=== PATIENT | female | born 1995 | race American Indian/Alaskan Native ===

== ENCOUNTER 2017-02-03 02:59 | Emergency (ER) | payer MEDICAID ==
[2017-02-03 02:59] VITALS: BMI 27.6
[2017-02-03 03:18] VITALS: RESP 14
[2017-02-03 03:56] LABS: RBC URINE 1 /hpf (0-3); URINE BILIRUBIN NEGATIVE (NEGATIVE); URINE BLOOD NEGATIVE (NEGATIVE); URINE COLOR Yellow (YELLOW); URINE GLUCOSE (UA) NORMAL (Normal); URINE KETONE NEGATIVE (NEGATIVE); URINE LEUKOCYTE ESTERASE TRACE Leu/uL (Negative); URINE PROTEIN 1+ mg/dL (NEGATIVE); WBC URINE 7 /hpf (0-5)
--- NOTE | 2017-02-03 04:27 | C.PDOC ---
History Of Present Illness A 21 year old female presents to the emergency room with complaints of pelvic pain that started today. Patient notes brown-like discharge and an odor for the past 2 weeks. Patient is sexually active with no new partners. Patient uses protection. Patient reports having intercourse tonight, which was painful. Patient denies any fever, chills, nausea, vomiting, dysuria, frequency, hematuria, incontinence, vaginal bleeding, back pain, or any other complaints. Time Seen by Provider: 02/03/17 03:23 Chief Complaint (Nursing): Abdominal Pain History Per: Patient History/Exam Limitations: no limitations Onset/Duration Of Symptoms: Other (2 weeks) Current Symptoms Are (Timing): Still Present Severity: Moderate Pain Scale Rating Of: 4 Radiation Of Pain To:: None Associated Symptoms: denies: Fever, Chills, Nausea, Vomiting, Diarrhea, Back Pain, Urinary Symptoms Exacerbating Factors: None Alleviating Factors: None Recent travel outside of the [place]: No Past Medical History Reviewed: Historical Data, Nursing Documentation, Vital Signs Vital Signs: Last Vital Signs Temp 98.2 F 02/03/17 04:40 Pulse 75 02/03/17 04:40 Resp 14 02/03/17 04:40 BP 110/70 02/03/17 04:40 Pulse Ox 97 02/03/17 04:57 - Medical History PMH: Asthma - [facility] Procedures CLOSURE SKIN & SUBCUTANEOUS NEC (11/07/13) MANUAL ASSIST DELIV NEC (09/13/14) Family History: States: No Known Family Hx - Social History Hx Tobacco Use: No Hx Alcohol Use: No Hx Substance Use: No - Immunization History Hx Tetanus Toxoid Vaccination: Yes Hx Influenza Vaccination: No Hx Pneumococcal Vaccination: No Review Of Systems Except As Marked, All Systems Reviewed And Found Negative. Constitutional: Negative for: Fever, Chills Gastrointestinal: Negative for: Nausea, Vomiting, Diarrhea Genitourinary: Positive for: Vaginal Discharge, Pelvic Pain. Negative for: Dysuria, Frequency, Incontinence, Hematuria, Vaginal Bleeding Physical Exam - Physical Exam Appears: Well, Non-toxic Skin: Normal Color, Warm, Dry, No Rash Head: Atraumatic, Normacephalic Eye(s): bilateral: Normal Inspection, EOMI Oral Mucosa: Moist Chest: Symmetrical Cardiovascular: Rhythm Regular Respiratory: Normal Breath Sounds, No Rales, No Rhonchi, No Wheezing Gastrointestinal/Abdominal: Soft, No Tenderness, No Guarding, No Rebound Pelvic: Normal External Exam, No Vaginal Bleeding, No Vaginal Discharge, No Cervical Motion Tenderness, Other ((+) foreign body -tampon in vaginal canal. ) Extremity: Normal ROM, No Tenderness Neurological/Psych: Oriented x3, Normal Speech, Normal Cognition ED Course And Treatment O2 Sat by Pulse Oximetry: 97 Progress Note: Patient notes that she last used a tampon 2+ weeks ago. Discussed signs of concern. There are no signs of systemic infection. Patient instructed to follow up with CONTROL ROOM AGENT in 1-2 days. Case discussed with Dr. Knight who agrees with plan and discharge. Disposition - Disposition Disposition: HOME/ ROUTINE Disposition Time: 04:25 Condition: STABLE Additional Instructions: Follow up with your primary medical doctor or clinic in 2-5 days for further evaluation. Take medications as prescribed. Return to the emergency department at any time if symptoms persist or worsen. Prescriptions: Clindamycin [Cleocin] 300 mg PO Q6 #28 cap Instructions: Vaginitis (ED) Forms: Work Excuse - Clinical Impression Clinical Impression: Foreign body in vagina - Scribe Statement The provider has reviewed the documentation as recorded by the Ahsan Serna Provider Scribe Attestation: All medical record entries made by the Ahsan were at my direction and personally dictated by me. I have reviewed the chart and agree that the record accurately reflects my personal performance of the history, physical exam, medical decision making, and the department course for this patient. I have also personally directed, reviewed, and agree with the discharge instructions and disposition.
[2017-02-03 04:43] VITALS: BP 110/70; PULSE 75; TEMP 98.2
[2017-02-03 04:52] VITALS: O2SAT 97
== END 2017-02-03 04:40 | disposition home or self-care (01) ==
LOC: C.ER 02:59
DX: T19.2XXA Foreign body in vulva and vagina, initial encounter (principal); X58.XXXA Exposure to other specified factors, initial encounter

== ENCOUNTER 2017-07-05 18:52 | Emergency (ER) | payer SELFPAY ==
[2017-07-05 18:52] VITALS: BMI 27.6
[2017-07-05 19:05] VITALS: BP 101/63; PULSE 93; RESP 16; TEMP 98; O2SAT 99
[2017-07-05] MEDS ORDERED: Lidocaine 1% Inj (20ml) ONE (20:15)
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
== END 2017-07-05 20:59 | disposition home or self-care (01) ==
LOC: C.ER 18:52
DX: S01.511A Laceration without foreign body of lip, initial encounter (principal); S01.512A Laceration without foreign body of oral cavity, initial encounter; Y08.89XA Assault by other specified means, initial encounter; Y93.89 Activity, other specified; Y92.9 Unspecified place or not applicable

== ENCOUNTER 2017-09-09 17:55 | Emergency (ER) | payer MEDICAID ==
[2017-09-09 17:56] VITALS: BMI 27.6
[2017-09-09 18:12] VITALS: BP 102/65; PULSE 84; RESP 18; TEMP 98.9; O2SAT 99
--- NOTE | 2017-09-09 18:34 | C.PDOC ---
History Of Present Illness 22 yr old female presents to the ER requesting test, states she had intermittent nausea for the past few days. Denies fever, chills, abdominal pain or dysuria. Time Seen by Provider: 09/09/17 18:14 Chief Complaint (Nursing): Medical Clearance History Per: Patient History/Exam Limitations: no limitations Onset/Duration Of Symptoms: Days Past Medical History Reviewed: Historical Data, Nursing Documentation, Vital Signs Vital Signs: Last Vital Signs Temp 98.9 F 09/09/17 18:08 Pulse 84 09/09/17 18:08 Resp 18 09/09/17 18:08 BP 102/65 09/09/17 18:08 Pulse Ox 99 09/09/17 18:56 - Medical History PMH: Asthma - [facility] Procedures CLOSURE SKIN & SUBCUTANEOUS NEC (11/07/13) MANUAL ASSIST DELIV NEC (09/13/14) Family History: States: No Known Family Hx - Social History Hx Tobacco Use: No Hx Alcohol Use: No Hx Substance Use: Yes (marijua) - Immunization History Hx Tetanus Toxoid Vaccination: Yes Hx Influenza Vaccination: No Hx Pneumococcal Vaccination: No Review Of Systems Except As Marked, All Systems Reviewed And Found Negative. Constitutional: Negative for: Fever, Chills Gastrointestinal: Positive for: Nausea. Negative for: Abdominal Pain Genitourinary: Negative for: Dysuria Physical Exam - Physical Exam Appears: Non-toxic, No Acute Distress Skin: Warm, Dry, No Rash Head: Atraumatic, Normacephalic Eye(s): bilateral: Normal Inspection, PERRL, EOMI Oral Mucosa: Moist Throat: No Erythema, No Exudate Neck: Normal ROM, Supple Chest: Symmetrical, No Tenderness Cardiovascular: Rhythm Regular, No Friction Rub, No Murmur Respiratory: Normal Breath Sounds, No Rales, No Rhonchi, No Stridor, No Wheezing Gastrointestinal/Abdominal: Normal Exam, Soft, No Tenderness, No Guarding, No Rebound Back: Normal Inspection, No CVA Tenderness Extremity: Normal ROM, No Swelling Neurological/Psych: Oriented x3, Normal Speech, Normal Motor Gait: Steady ED Course And Treatment O2 Sat by Pulse Oximetry: 99 (RA) Pulse Ox Interpretation: Normal Disposition - Disposition Referrals: [facility] [Outside] [facility] [employer] [facility] [Outside] [facility] [Outside] Disposition: HOME/ ROUTINE Disposition Time: 18:34 Condition: GOOD Additional Instructions: Follow up with the medical doctor within 1-2 days, Return if worsened. Instructions: (ED) Forms: [employer] (East Timorese) - Clinical Impression Clinical Impression: - PA / MANAGER ENGAGEMENT / Resident Statement MD/DO has reviewed & agrees with the documentation as recorded. - Scribe Statement The provider has reviewed the documentation as recorded by the Scribe Yohana Mcneil All medical record entries made by the Facundoibe were at my direction and personally dictated by me. I have reviewed the chart and agree that the record accurately reflects my personal performance of the history, physical exam, medical decision making, and the department course for this patient. I have also personally directed, reviewed, and agree with the discharge instructions and disposition.
== END 2017-09-09 18:35 | disposition home or self-care (01) ==
LOC: C.ER 17:55
DX: O26.90 Pregnancy related conditions, unspecified, unspecified trimester (principal); Z3A.00 Weeks of gestation of pregnancy not specified

== ENCOUNTER 2017-09-16 22:05 | Emergency (ER) | payer SELFPAY ==
[2017-09-16 22:14] VITALS: BMI 23.3
[2017-09-16] MEDS ORDERED: Sodium Chloride 0.9% 1,000 ML IV ONE (22:16)
[2017-09-16 22:34] LABS: RBC URINE 3066 /hpf (0-3); URINE BILIRUBIN NEGATIVE (NEGATIVE); URINE BLOOD 3+ (NEGATIVE); URINE COLOR Yellow (YELLOW); URINE GLUCOSE (UA) NORMAL (Normal); URINE KETONE NEGATIVE (NEGATIVE); URINE LEUKOCYTE ESTERASE 2+ Leu/uL (Negative); URINE PROTEIN 2+ mg/dL (NEGATIVE); WBC URINE 33 /hpf (0-5)
[2017-09-16] MEDS ORDERED: Sodium Chloride 0.9% 1,000 ML ONE (23:13)
[2017-09-16 23:15] LABS: BASO % 0.5 % (0.0-2.0); EOS # 0.1 K/uL (0.0-0.7); EOS % 0.8 % (0.0-4.0); HEMATOCRIT 36.5 % (34.0-47.0); LYMPH # 1.8 K/uL (1.0-4.3); LYMPH % 26.6 % (20.0-40.0); MEAN CELL VOLUME 82.3 fL (81.0-99.0); MEAN CORPUSCULAR HEMOGLOBIN 27.4 pg (27.0-31.0); MEAN CORPUSCULAR HGB CONC 33.3 g/dL (33.0-37.0); MEAN PLATELET VOLUME 7.1 fL (7.2-11.7); MONO # 0.5 K/uL (0.0-0.8); MONO % 7.7 % (0.0-10.0); WHITE BLOOD COUNT 6.7 K/uL (4.8-10.8)
--- NOTE | 2017-09-16 23:20 | US ---
EXAM: US , Transvaginal CLINICAL HISTORY: 22 years old, female; Signs and symptoms; Lmp or gestational age (in weeks): 08/07/17; Antepartum complications; Bleeding; ; Additional info: Vag bleed @ 5 wks, ? ectopic TECHNIQUE: Real-time transvaginal obstetrical ultrasound of the maternal pelvis and a first trimester with image documentation. Transvaginal imaging was used for better evaluation of the fetus and adnexa. COMPARISON: No relevant prior studies available. FINDINGS: Gestation: Intrauterine gestational sac noted. Evidence of yolk sac and pole. Estimated gestational age based on mean sac diameter is 5 weeks 2 days. heart rate measured at 110 BPM. 3.7 x 1.7 x 2.9 cm hypoechoic/heterogeneous focus noted adjacent to gestational sac, likely subchorionic hematoma. Uterus/cervix: Retroverted uterus. Ovaries: Bilateral flow. Evidence of 2.5 cm right corpus luteum. Free fluid: No free fluid. IMPRESSION: Single live IUP as above. Evidence of large subchorionic hematoma. Additional details/findings as above. Followup imaging recommended.
[2017-09-16 23:27] LABS: ALKALINE PHOSPHATASE 47 U/L (38-126); ALT/SGPT 40 U/L (9-52); AST/SGOT 16 U/L (14-36); BILIRUBIN,TOTAL 0.6 mg/dL (0.2-1.3); BLOOD UREA NITROGEN 9 mg/dL (7-17); CALCIUM 8.5 mg/dl (8.6-10.4); CARBON DIOXIDE 27 mmol/L (22-30); CHLORIDE 104 mmol/L (98-107); GFR AFRICAN-AMERICAN > 60; GLUCOSE,RANDOM 76 mg/dL (65-105); POTASSIUM 3.7 mmol/L (3.6-5.2); SODIUM 136 mmol/L (132-148)
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
[2017-09-17 00:38] VITALS: BP 102/69; PULSE 63; RESP 18; TEMP 98
[2017-09-17 00:42] VITALS: O2SAT 100
== END 2017-09-17 00:49 | disposition home or self-care (01) ==
LOC: C.ER 22:05
DX: O20.0 Threatened abortion (principal); Z3A.01 Less than 8 weeks gestation of pregnancy
CPT/HCPCS: 76817; 80053; 81001; 84702; 84703; 85025; 86850; 86900; 96360; 99285; J7040

== ENCOUNTER 2018-04-27 12:27 | Emergency (ER) | payer MEDICAID ==
[2018-04-27 12:28] VITALS: BMI 23.3
[2018-04-27 12:34] VITALS: BP 111/74; PULSE 75; RESP 18; TEMP 98.3; O2SAT 100
--- NOTE | 2018-04-27 13:06 | C.PDOC ---
History Of Present Illness 23-year-old female, presents to the emergency department with complaints of lower back cramping, that is associated with episodes of non-bloody/watery diarrhea. Patient is also complaining of pimple-like lesions to the left labia for the past week. She denies any nausea/vomiting, or any other associated symptoms. LMP 03/08 Time Seen by Provider: 04/27/18 12:37 Chief Complaint (Nursing): Abdominal Pain History Per: Patient History/Exam Limitations: no limitations Past Medical History Reviewed: Historical Data, Nursing Documentation, Vital Signs Vital Signs: Last Vital Signs Temp 98.3 F 04/27/18 12:30 Pulse 75 04/27/18 12:30 Resp 18 04/27/18 12:30 BP 111/74 04/27/18 12:30 Pulse Ox 100 04/27/18 13:22 - Medical History PMH: Asthma - [facility] Procedures CLOSURE SKIN & SUBCUTANEOUS NEC (11/07/13) MANUAL ASSIST DELIV NEC (09/13/14) Family History: States: No Known Family Hx - Social History Hx Tobacco Use: No Hx Alcohol Use: No Hx Substance Use: Yes ([facility]) - Immunization History Hx Tetanus Toxoid Vaccination: Yes Hx Influenza Vaccination: No Hx Pneumococcal Vaccination: No Review Of Systems Constitutional: Negative for: Fever Cardiovascular: Negative for: Chest Pain, Palpitations Respiratory: Negative for: Shortness of Breath Gastrointestinal: Negative for: Vomiting Genitourinary: Positive for: Other (lesions on labia). Negative for: Vaginal Discharge, Vaginal Bleeding Skin: Negative for: Rash Neurological: Negative for: Weakness, Numbness, Headache, Dizziness Physical Exam - Physical Exam Appears: Non-toxic, No Acute Distress Skin: Normal Color, Warm, Dry, No Rash Head: Atraumatic, Normacephalic Eye(s): bilateral: Normal Inspection, PERRL, EOMI Nose: Normal Oral Mucosa: Moist Lips: Normal Appearing Neck: Normal ROM Chest: Symmetrical Cardiovascular: Rhythm Regular, No Murmur Respiratory: Normal Breath Sounds, No Accessory Muscle Use Gastrointestinal/Abdominal: Soft, No Tenderness, No Guarding, No Rebound Pelvic: Other (Left labia: 3 lesions, 1-2mm nodular with superficial scabbing. Clear fluid discharge, scant. No erythema, non-fluctuant) Extremity: Normal ROM, No Deformity, No Swelling Neurological/Psych: Oriented x3, Normal Speech ED Course And Treatment O2 Sat by Pulse Oximetry: 100 (RA) Pulse Ox Interpretation: Normal Disposition Counseled Patient/Family Regarding: Studies Performed, Diagnosis, Need For Followup, Rx Given - Disposition Referrals: [facility] [Outside] [facility] [Outside] Disposition: HOME/ ROUTINE Disposition Time: 13:00 Condition: IMPROVED Prescriptions: Atropine/Diphenoxylate [Lonox 0.025 MG-2.5 MG] 1 tab PO BID PRN #6 tab PRN Reason: Diarrhea Ibuprofen [Motrin] 600 mg PO Q6 #30 tab Nitrofurantoin Macrocrystals [Macrobid] 100 mg PO BID #10 cap Phenazopyridine HCl [Pyridium] 200 mg PO BID #6 tablet Instructions: Diarrhea and Traveler's Diarrhea, Adult (DC), Urinary Tract Infection, Adult (DC) Forms: [employer] (Japanese) - Clinical Impression Clinical Impression: Genital lesion, female, Pelvic pain, Diarrhea, UTI (urinary tract infection) - Scribe Statement The provider has reviewed the documentation as recorded by the Scribe (Sarahi Cody) All medical record entries made by the Scribe were at my direction and personally dictated by me. I have reviewed the chart and agree that the record accurately reflects my personal performance of the history, physical exam, medical decision making, and the department course for this patient. I have also personally directed, reviewed, and agree with the discharge instructions and disposition. Provider Attestation: All medical record entries made by the Scribe were at my direction and personally dictated by me. I have reviewed the chart and agree that the record accurately reflects my personal performance of the history, physical exam, medical decision making, and the department course for this patient. I have also personally directed, reviewed, and agree with the discharge instructions and disposition.
[2018-04-27 13:07] LABS: SQUAMOUS EPITHIAL 12 /hpf (0-5); URINE BILIRUBIN NEGATIVE (NEGATIVE); URINE BLOOD NEGATIVE (NEGATIVE); URINE CLARITY Hazy (Clear); URINE COLOR Yellow (YELLOW); URINE GLUCOSE (UA) NORMAL (Normal); URINE LEUKOCYTE ESTERASE 2+ Leu/uL (Negative); URINE PROTEIN 1+ mg/dL (NEGATIVE); URINE UROBILINOGEN NORMAL mg/dL (0.2-1.0)
[2018-04-27] MEDS ORDERED: cefTRIAXone (Rocephin) 250 mg Inj IM STA (13:08)
== END 2018-04-27 13:37 | disposition home or self-care (01) ==
LOC: C.ER 12:27
DX: N39.0 Urinary tract infection, site not specified (principal); N89.9 Noninflammatory disorder of vagina, unspecified; R10.2 Pelvic and perineal pain; R19.7 Diarrhea, unspecified
CPT/HCPCS: 81001; 87491; 87591; 96372; 99284; J0696

== ENCOUNTER 2018-09-14 23:15 | Emergency (ER) | payer MEDICAID ==
[2018-09-14 23:15] VITALS: BMI 23.3
[2018-09-14 23:22] VITALS: O2SAT 98
[2018-09-15 00:15] VITALS: BP 120/70; PULSE 100; RESP 18; TEMP 99
--- NOTE | 2018-09-15 00:44 | C.PDOC ---
History Of Present Illness 23 year old female presents to the ER with a complaint of frontal headache since yesterday associated with subjective fever. Patient reports positive sick contacts at work. Denies ear pain, throat pain, or cough. Time Seen by Provider: 09/14/18 23:27 Chief Complaint (Nursing): Headache History Per: Patient History/Exam Limitations: no limitations Onset/Duration Of Symptoms: Days (Yesterday) Current Symptoms Are (Timing): Still Present Preceeding Symptoms: None Associated Symptoms: Other (Subjective fever) Recent travel outside of the [place]: No Past Medical History Reviewed: Historical Data, Nursing Documentation, Vital Signs Vital Signs: Last Vital Signs Temp 99 F 09/15/18 00:15 Pulse 100 H 09/15/18 00:15 Resp 18 09/15/18 00:15 BP 120/70 09/15/18 00:15 Pulse Ox 98 09/15/18 00:15 - Medical History PMH: Asthma, Bronchitis - [facility] Procedures CLOSURE SKIN & SUBCUTANEOUS NEC (11/07/13) MANUAL ASSIST DELIV NEC (09/13/14) Family History: States: Unknown Family Hx - Social History Hx Tobacco Use: No Hx Alcohol Use: No Hx Substance Use: No - Immunization History Hx Tetanus Toxoid Vaccination: Yes Hx Influenza Vaccination: No Hx Pneumococcal Vaccination: No Review Of Systems Constitutional: Positive for: Fever (Subjective) ENT: Negative for: Ear Pain, Throat Pain Respiratory: Negative for: Cough Gastrointestinal: Negative for: Nausea, Vomiting Neurological: Positive for: Headache Physical Exam - Physical Exam Appears: Non-toxic Skin: Normal Color, Warm, Dry Head: Atraumatic, Normacephalic Eye(s): bilateral: Normal Inspection, PERRL, EOMI Ear(s): Bilateral: Normal Nose: Normal Oral Mucosa: Moist Neck: Normal, No Midline Cervical Tenderness, No Paracervical Tenderness, Supple Chest: Symmetrical, No Tenderness Cardiovascular: Rhythm Regular Respiratory: Normal Breath Sounds, No Rales, No Rhonchi, No Wheezing Neurological/Psych: Oriented x3, Normal Speech ED Course And Treatment O2 Sat by Pulse Oximetry: 98 (Room air) Pulse Ox Interpretation: Normal Medical Decision Making Medical Decision Making: Motrin administered. Flu swab ordered, results were negative. Patient denies severe headache has no nuchal rigidity, neuro deficits and in no acute distress, Vitals are stable, will discharge home with instructions to follow up with PMD. Disposition Counseled Patient/Family Regarding: Diagnosis, Need For Followup - Disposition Disposition: HOME/ ROUTINE Disposition Time: 00:05 Condition: GOOD Additional Instructions: Take Tylenol or Motrin alternating every 4-6 hours for Fever 100.4F or higher. Rest and drink plenty of fluids. May use cool mist humidifier or vaporizer in room. Follow up with your primary medical doctor or clinic in 2-5 days for further evaluation. Instructions: Headache, Adult (DC) Forms: [facility] (Hebrew), Work Excuse - POA Present On Arrival: None - Clinical Impression Clinical Impression: Viral syndrome - PA / GEOGRAPHY DEPARTMENT CHAIR / Resident Statement MD/DO has reviewed & agrees with the documentation as recorded. - Scribe Statement The provider has reviewed the documentation as recorded by the Scribe Uziel Major All medical record entries made by the Scribnaeem were at my direction and personally dictated by me. I have reviewed the chart and agree that the record accurately reflects my personal performance of the history, physical exam, medical decision making, and the department course for this patient. I have also personally directed, reviewed, and agree with the discharge instructions and disposition.
== END 2018-09-15 00:15 | disposition home or self-care (01) ==
LOC: C.ER 23:15
DX: B34.9 Viral infection, unspecified (principal)

== ENCOUNTER 2018-09-17 16:58 | Emergency (ER) | payer MEDICAID ==
[2018-09-17 16:58] VITALS: BMI 23.3
[2018-09-17 19:12] VITALS: BP 99/65; PULSE 86; RESP 18; TEMP 99.6; O2SAT 99
--- NOTE | 2018-09-17 19:43 | C.PDOC ---
History Of Present Illness 23 year old female presents to the ED for evaluation of fever and sore throat which began two days ago. Patient was seen in this ED two days ago. Patient denies cough, nausea, vomiting, abdominal pain, sick contacts or recent travel. Time Seen by Provider: 09/17/18 18:09 Chief Complaint (Nursing): Fever History Per: Patient History/Exam Limitations: no limitations Onset/Duration Of Symptoms: Days Current Symptoms Are (Timing): Still Present Associated Symptoms: Fever, Sore Throat. denies: Cough, Nausea, Vomiting Additional History Per: Patient Past Medical History Reviewed: Historical Data, Nursing Documentation, Vital Signs Vital Signs: Last Vital Signs Temp 99.6 F 09/17/18 19:11 Pulse 86 09/17/18 19:11 Resp 18 09/17/18 19:11 BP 99/65 L 09/17/18 19:11 Pulse Ox 99 09/17/18 19:11 - Medical History PMH: Asthma, Bronchitis Surgical History: No Surg Hx - [facility] Procedures CLOSURE SKIN & SUBCUTANEOUS NEC (11/07/13) MANUAL ASSIST DELIV NEC (09/13/14) Family History: States: Unknown Family Hx - Social History Hx Tobacco Use: No Hx Alcohol Use: No Hx Substance Use: No - Immunization History Hx Tetanus Toxoid Vaccination: Yes Hx Influenza Vaccination: No Hx Pneumococcal Vaccination: No Review Of Systems Constitutional: Positive for: Fever ENT: Positive for: Throat Pain Cardiovascular: Negative for: Chest Pain Gastrointestinal: Negative for: Nausea, Vomiting, Abdominal Pain Musculoskeletal: Positive for: Other (generalized body aches ) Physical Exam - Physical Exam Appears: Non-toxic, No Acute Distress Skin: Normal Color, Warm, Dry Head: Atraumatic, Normacephalic Eye(s): bilateral: Normal Inspection Ear(s): Bilateral: Normal Oral Mucosa: Moist Throat: Erythema (tonsillar ), Exudate (scant ), Other (tonsillar hypertrophy) Neck: Supple Lymphatic: Adenopathy (palpable, anterior, cervical ) Chest: Symmetrical, No Deformity, No Tenderness Cardiovascular: Rhythm Regular, No Murmur Respiratory: Normal Breath Sounds, No Rales, No Rhonchi, No Wheezing Gastrointestinal/Abdominal: Normal Exam, Bowel Sounds, Soft Extremity: Normal ROM, Capillary Refill (less than 2 seconds ) Neurological/Psych: Oriented x3, Normal Speech, Normal Cognition ED Course And Treatment O2 Sat by Pulse Oximetry: 99 (on RA) Pulse Ox Interpretation: Normal Medical Decision Making Medical Decision Making: Impression: 23 year old female with fever, sore throat Plan: * Tylenol PO * Zithromax PO * reassess and disposition Progress: Tylenol PO and Zithromax PO given. Patient with repeat temperature of 99.6. On reassessment, patient is resting comfortably, showing no signs of distress and is stable for discharge. Patient is advised to f/u with PMD within 1-2 days for further evaluation. Disposition Counseled Patient/Family Regarding: Studies Performed, Diagnosis, Need For Followup, Rx Given - Disposition Referrals: Obed Skelton MD [Staff Provider] - Disposition: HOME/ ROUTINE Disposition Time: 19:53 Condition: STABLE Additional Instructions: follow up with your doctor within 2 days call to make an appointment take medications as prescribed return to ER if symptoms worsens or progress Prescriptions: Azithromycin [Zithromax] 250 mg PO DAILY #4 tab RX: Ibuprofen [Motrin Tab] 400 mg PO QID PRN #15 tab PRN Reason: Pain, Moderate (4-7) Instructions: Sore Throat, Adult (DC) Forms: General Discharge Instructions, [facility] (Ukrainian), Work Excuse - Clinical Impression Clinical Impression: Pharyngitis - Scribe Statement The provider has reviewed the documentation as recorded by the Scribe (Geetha Edmondson) Provider Attestation: All medical record entries made by the Scribe were at my direction and personally dictated by me. I have reviewed the chart and agree that the record accurately reflects my personal performance of the history, physical exam, medical decision making, and the department course for this patient. I have also personally directed, reviewed, and agree with the discharge instructions and disposition.
== END 2018-09-17 20:20 | disposition home or self-care (01) ==
LOC: C.ER 16:58
DX: J02.9 Acute pharyngitis, unspecified (principal)

== ENCOUNTER 2018-12-30 02:26 | Emergency (ER) | payer MEDICAID ==
[2018-12-30 02:27] VITALS: BMI 23.3
[2018-12-30 02:51] VITALS: PULSE 133; RESP 20; TEMP 98.6; O2SAT 100
--- NOTE | 2018-12-30 03:29 | C.PDOC ---
History Of Present Illness 23 year old female presents with itchy rash to her medial thighs, upper arms, and back. Patient denies eating anything out of the ordinary. 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 Time Seen by Provider: 12/30/18 02:51 Chief Complaint (Nursing): Abnormal Skin Integrity History Per: Patient History/Exam Limitations: no limitations Onset/Duration Of Symptoms: Hrs Current Symptoms Are (Timing): Still Present Location Of Injury: Right: Arm, Thigh, Left: Arm, Thigh, Posterior: Back Quality Of Symptoms: Itching Recent travel outside of the [place]: No Past Medical History Reviewed: Historical Data, Nursing Documentation, Vital Signs Vital Signs: Last Vital Signs Temp 98.6 F 12/30/18 02:44 Pulse 133 H 12/30/18 02:44 Resp 20 12/30/18 02:44 BP Pulse Ox 100 12/30/18 02:44 - Medical History PMH: Asthma, Bronchitis - [facility] Procedures CLOSURE SKIN & SUBCUTANEOUS NEC (11/07/13) MANUAL ASSIST DELIV NEC (09/13/14) Family History: States: Unknown Family Hx - Social History Hx Tobacco Use: No Hx Alcohol Use: No Hx Substance Use: No - Immunization History Hx Tetanus Toxoid Vaccination: Yes Hx Influenza Vaccination: No Hx Pneumococcal Vaccination: No Review Of Systems Constitutional: Negative for: Fever, Chills Cardiovascular: Negative for: Chest Pain, Palpitations Respiratory: Negative for: Cough, Shortness of Breath Gastrointestinal: Negative for: Nausea, Vomiting Skin: Positive for: Rash Physical Exam - Physical Exam Appears: Non-toxic Skin: Warm, Rash (Wheals to bilateral upper arms, bilateral medial thighs, and back) Head: Atraumatic, Normacephalic Eye(s): bilateral: Normal Inspection Oral Mucosa: Moist Tongue: Normal Appearing, No Swelling Lips: Normal Appearing, No Swelling Throat: Normal, No Other (Swelling) Neck: Normal, Supple Chest: Symmetrical, No Tenderness Cardiovascular: Rhythm Regular Respiratory: Normal Breath Sounds, No Accessory Muscle Use, No Stridor, No Wheezing Gastrointestinal/Abdominal: Soft, No Tenderness Neurological/Psych: Oriented x3, Normal Speech ED Course And Treatment O2 Sat by Pulse Oximetry: 100 Pulse Ox Interpretation: Normal Reevaluation Time: 03:38 Reassessment Condition: Improved Medical Decision Making Medical Decision Making: 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 I have reviewed the chart and agree that the record accurately reflects my personal performance of the history, physical exam, medical decision making, and the department course for this patient. I have also personally directed, reviewed, and agree with the discharge instructions and disposition.
== END 2018-12-30 03:50 | disposition home or self-care (01) ==
LOC: C.ER 02:26
DX: L25.9 Unspecified contact dermatitis, unspecified cause (principal)